=== PATIENT | male | born 1965 | race American Indian/Alaskan Native ===

== ENCOUNTER 2018-01-27 07:46 | Emergency (ER) | payer MEDICAID, OTHER ==
--- NOTE | 2018-01-27 08:25 | C.PDOC ---
History Of Present Illness 52 y/o male with history of HTN presents to ED requesting medication refill. Patient state she ran out of HTN medication "several days ago" and reports he typically had high blood pressure at baseline. At ED patient's blood pressure is 213/138 and denies chest pain, sob, numbness, weakness, vision changes or any other complaints at this time. Time Seen by Provider: 01/27/18 08:07 Chief Complaint (Nursing): Med Refill History Per: Patient History/Exam Limitations: no limitations Onset/Duration Of Symptoms: Days Current Symptoms Are (Timing): Still Present Past Medical History Reviewed: Historical Data, Nursing Documentation, Vital Signs Vital Signs: Last Vital Signs Temp 98 F 01/27/18 10:22 Pulse 87 01/27/18 10:22 Resp 19 01/27/18 10:22 BP 180/100 H 01/27/18 10:22 Pulse Ox 98 01/27/18 10:22 - Medical History PMH: HTN Surgical History: No Surg Hx Family History: States: No Known Family Hx - Social History Hx Alcohol Use: No Hx Substance Use: No - Immunization History Hx Tetanus Toxoid Vaccination: Yes Hx Influenza Vaccination: No Hx Pneumococcal Vaccination: No Review Of Systems Cardiovascular: Negative for: Chest Pain Respiratory: Negative for: Shortness of Breath Gastrointestinal: Negative for: Nausea, Vomiting Neurological: Negative for: Weakness, Numbness Physical Exam - Physical Exam Appears: Non-toxic, No Acute Distress Skin: Warm, Dry, No Rash Head: Atraumatic, Normacephalic Eye(s): bilateral: Normal Inspection Oral Mucosa: Moist Neck: Normal ROM, Supple Chest: Symmetrical, No Tenderness Cardiovascular: Rhythm Regular, No Friction Rub, No Murmur Respiratory: Normal Breath Sounds, No Rales, No Rhonchi, No Stridor Gastrointestinal/Abdominal: Soft, No Tenderness, No Guarding, No Rebound Back: Normal Inspection, No CVA Tenderness Extremity: Normal ROM, No Pedal Edema, Capillary Refill (<2 seconds), No Swelling Pulses: Left Dorsalis Pedis: Normal, Right Dorsalis Pedis: Normal Neurological/Psych: Oriented x3, Normal Speech, Normal Motor, Normal Sensation Gait: Steady ED Course And Treatment O2 Sat by Pulse Oximetry: 99 (RA) Pulse Ox Interpretation: Normal Medical Decision Making Medical Decision Making: Plan: Hydrodiuril, Losartan and Lopressor administered. After several rounds of medications BP has lowered but still remains high. Clonidine given. On re-exam, the patient reports that he remains asymptomatic. Patient states he does not want admission into the hospital. Patient was instructed on the risks and benefits of elevated BP and risk of kidney injury, heart attack, stroke and potential . Disposition - Disposition Referrals: [facility] [Outside] Disposition: HOME/ ROUTINE Disposition Time: 10:11 Condition: GOOD Additional Instructions: Follow up with medical doctor within 1-2 days. Return if worsened. Prescriptions: Metoprolol Alberto/Hydrochlorothiaz [Metoprolol ER-Hctz 25-12.5 mg] 1 each PO DAILY # 30 tab.er.24h Valsartan [Diovan] 320 mg PO DAILY #30 tab Instructions: High Blood Pressure in Adults Forms: [employer] (Spanish) - Clinical Impression Clinical Impression: Hypertension - PA / TYPE CUTTER / Resident Statement MD/DO has reviewed & agrees with the documentation as recorded. - Scribe Statement The provider has reviewed the documentation as recorded by the Abelardoibjessica Vigil All medical record entries made by the Abelardoibjessica were at my direction and personally dictated by me. I have reviewed the chart and agree that the record accurately reflects my personal performance of the history, physical exam, medical decision making, and the department course for this patient. I have also personally directed, reviewed, and agree with the discharge instructions and disposition.
[2018-01-27 09:04] VITALS: BP 180/100; TEMP 98
[2018-01-27 10:22] VITALS: PULSE 87; RESP 19
[2018-01-31 08:05] VITALS: O2SAT 99
== END 2018-01-27 10:22 | disposition home or self-care (01) ==
LOC: C.ER 07:46
DX: I10 Essential (primary) hypertension (principal)